=== PATIENT | male | born 1990 | race Two or more races ===

== ENCOUNTER 2023-05-17 23:24 | Emergency (ER) | payer OTHER ==
[~2023-05-17] VITALS: Ht 180.3 cm; Wt 145.1 kg
[2023-05-18] MEDS ORDERED: PEPCID AC20 MG (00:14)
== END 2023-05-18 09:36 | disposition home or self-care (01) ==
LOC: ER 23:24
PROVIDERS: General Practice
DX: N20.0 Calculus of kidney (principal)